=== PATIENT | male | born 1970 | race Caucasian/White ===

== ENCOUNTER → 2016-10-25 | Outpatient (CLI) | payer OTHER ==
[~2016-10-25] VITALS: Ht 177.8 cm; Wt 102.0 kg
[~2016-10-25] MED LIST: IBUP-1050 PO; MULT-506 PO
[2016-10-25 13:41] VITALS: BP 130/81; PULSE 87; Ht 177.8 cm; Wt 102.0 kg
== END | disposition home or self-care (01) ==
LOC: C.NEUR 13:24
PROVIDERS: ATTEND Internal Medicine Pulmonary Disease
DX: G47.33 Obstructive sleep apnea (adult) (pediatric) (principal); G47.19 Other hypersomnia

== ENCOUNTER → 2017-04-04 | Day surgery (SDC) | payer OTHER ==
[2017-03-16 08:07] VITALS: Ht 179.1 cm; Wt 96.4 kg
[~2017-04-04] VITALS: Ht 179.1 cm; Wt 96.4 kg
[~2017-04-04] MED LIST changes: +ATROPINE SULFATE 0.1 MG/ML 5ML SYR IV PRN; +CEFAZOLIN 2000 MG/60 ML D5W IV SCH; +DEXAMETHASONE SOD INJ 4 MG/ML VIAL ONE; +EpHEDrine SULFATE INJ 50 MG/ML AMP IV PRN; +EpINEphrine HCL INJ 1 MG/ML 5ML SYRINGE ONE; +FENTANYL CITRATE INJ 50 MCG/1 ML 2 ML VIAL ONE; +GLYCOPYRROLATE INJ 0.2 MG/ML VIAL ONE; +HYDROmorphone INJ 1 MG/ML SYR ONE; +KETAMINE HCL INJ 50 MG/ML 10 ML VIAL ONE; +KETOROLAC TROMETHAMINE 30 MG/ML VIAL ONE; +LACTATED RINGER'S 1000ML 1,000 ML IV SCH; +LEVOFLOXACIN 500 MG TAB PO SCH; +LIDOCAINE HCL 2% 2 ML VIAL (20MG/ML) ONE; +MIDAZOLAM HCL 1 MG/ML 2ML VIAL ONE; +NEOSTIGMINE METHYLSULFATE 5 MG/5 ML SYR ONE; +ONDANSETRON INJ 2 MG/ML 2 ML VIAL IV PRN; +ONDANSETRON INJ 2 MG/ML 2 ML VIAL ONE; +OXYCODONE/ACETAMINOPHEN 5-325 TAB PO PRN; +PROPOFOL IV EMULSION 10 MG/ML 20 ML VIAL IV ONE; +ROCURONIUM BROMIDE 10 MG/ML 5 ML VIAL ONE; +SCOPOLAMINE 1.5 MG TDSY TD ONE; +SODIUM CHLORIDE 0.9% 1000ML 1,000 ML IV SCH
--- NOTE | 2017-04-04 13:23 | History & Physical Bridge Note ---
H&P Re-Evaluation Bridge Note: I have examined the patient, reviewed the History & Physical and in the interval since the performance of the History & Physical I have noted the following changes of clinical significance: No changes noted
--- NOTE | 2017-04-04 13:25 | Discharge Instructions ---
Discharge Instructions Date of Service Apr 04, 2017. Visit Reason for Visit: Right Hip Chronic Enoroacetabular Impingement Synd Discharge Discharge Diagnosis / Problem: same Discharge Goals Goal(s): Decrease discomfort, Improve function Medications Stopped Medications Name(s): na Restart Stopped Medication(s): use scripts as directed Activity Recommendations Activity Limitations: as noted below Lifting Limitations: until after follow-up appointment Exercise/Sports Limitations: until after follow-up appointment May Resume Sexual Activity: after follow-up appointment Shower/Bathe: keep incision dry Driving or Machine Use: Weightbearing Status: Right non-weightbearing Anesthesia . Post Anesthesia Instructions: If you have had General Anesthesia or IV Sedation: * Do not drive today. * Resume driving when surgeon permits. * Do not make important decisions or sign legal documents today. * Call surgeon for: 1. Temperature elevations greater than 101 degrees F. 2. Uncontrollable pain. 3. Excessive bleeding. 4. Persistent nausea and vomiting. 5. Medication intolerance (nausea, vomiting or rash). * For nausea and vomiting use only clear liquids such as: tea, soda, bouillon until nausea subsides, then gradually increase diet as tolerated. * If you have any concerns or questions, call your surgeon's office. If physician is unavailable and it is an emergency, call 911 or go to the nearest emergency room. . Instructions / Follow-Up Instructions / Follow-Up DIET: * Resume previous diet. MEDICATIONS: * Please take your prescriptions as instructed at your pre-op appointment and/ or see medication discharge instructions listed above. * If concerns develop, call your physician's office at . SPECIAL CARE INSTRUCTIONS: * Ice/Elevate as instructed. * Keep dressing clean, dry, intact. * Your surgical extremity may be discolored due to prepping agents used on the skin. A bluish-green tint is a normal variant and should not cause alarm. Call your doctor at [phone] if: * Temperature above 101 degrees * Pain not relieved by pain medicine ordered * There is increased drainage or redness from any incision * You have any unanswered questions, problems or concerns. FOLLOW UP VISIT: * If not already scheduled, please call the office at to schedule a follow-up appointment. Diet Recommendations Recommended Home Diet: resume previous diet Procedures Procedures Performed: see op note Pending Studies Studies pending at discharge: no Medical Emergencies . Who to Call and When: Medical Emergencies: If at any time you feel your situation is an emergency, please call 911 immediately. . Non-Emergent Contact Non-Emergency issues call your: Specialist Call Non-Emergent contact if: temperature is above 101.5 . . "Provider Documentation" section prepared by Xavier Dale. .
--- NOTE | 2017-04-04 15:24 | [facility] Post Operative Brief Note ---
Immediate Operative Summary Operative Date Apr 04, 2017. Pre-Operative Diagnosis right hip labral hip tear with Cam lesion Post-Operative Diagnosis SAME Procedure(s) Performed debridement calcified labrum /cam resection Surgeon Dr Dale Edge Banding Off Bearer Surgeon(s) Marge Cerda PA-C Estimated Blood Loss trace Findings see op note Fluids (cc crystalloids) 1400cc Specimens none Drains none Anesthesia general Complication(s) None Disposition Recovery Room / PACU
[2017-04-04] MEDS: FENTANYL CITRATE INJ 50 MCG/1 ML 2 ML VIAL IV PRN ×3 (15:57→16:19)
--- NOTE | 2017-04-04 15:57 | OPERATIVE REPORT ---
DATE OF OPERATION: 04/04/2017 PREOPERATIVE DIAGNOSIS: Calcified labrum with Cam lesion and impingement of the right hip. POSTOPERATIVE DIAGNOSIS: Same. OPERATION PERFORMED: Arthroscopic debridement right hip, chondrocalcinosis of the labrum, debridement of calcified labrum, debridement of intra-articular cartilage flaps off the acetabulum and resection of Cam lesion. SURGEON: Dr. Dale. DELIVERY PROFESSIONAL: Zhao Cerda PA-C. No resident or fellow available. PERIOPERATIVE SITUATION: Medically cleared male with intractable hip pain, has difficulty even sitting. At this point in time is frustrated, cannot have any kind of quality of life, has failed all conservative management. Options were discussed with him concerning hip replacement and the hip arthroscopy. He wanted to proceed with the lesser procedure in the sense of the hip arthroscopy and at his age of 46 that is more appropriate. No guarantees were given. He could have continued pain, weakness, femoral neck fracture, etc. All these were discussed in detail preop. OPERATION AND FINDINGS: PROCEDURE: The patient appropriately identified, site verified, consent verified, 2 grams of Ancef confirmed as being given. The patient was placed on a traction table and the leg was then distracted. It was then put back at rest. He was then prepped and draped in usual routine fashion. Once everything was ready he was then placed back in traction with total traction time of about 50 minutes. Anterior trochanteric and anterior portal made. Good positioning was obtained, good free flow established. Capsulotomy was made. It was quite thick and fibrotic. Immediately encountered was a large flap tear of the labrum inside the joint. This was debrided. Once this was followed laterally, the area of the calcification on the x-ray was found and it was noted to be calcific labral type capsular tissue. This was all crystalloid. It was evacuated and once this was evacuated the entire lesion disappeared on the fluoroscopic view. All the particle debris was removed. This area was then all cleaned up. There was some articular disease of the acetabulum which was debrided in this area as well. Once this was done, traction was released. The hip flexed. The capsule was T'd but not resected. The area of the Cam lesion that was most prominent was resected. There was no aggressive resection done here enough to clear as he went into flexion. This was verified by fluoroscopic image. The hip was then copiously irrigated. All instruments and fluid were removed. The portals were then closed with 3-0 nylon, dressed appropriately with Xeroform, 4 x 4 gauze, ABD pads and Ioban dressing. The patient was then transferred to recovery room in satisfactory condition having tolerated the procedure well. Estimated blood loss was trace. Crystalloid 1400 mL. DVT prophylaxis per protocol. I attest to the content of the Intraoperative Record and any orders documented therein. Any exception s are noted below.
[2017-04-04 17:18] VITALS: BP 139/79; PULSE 87; O2SAT 97
--- NOTE | 2017-04-04 17:21 | Anesthesia Progress Nt - [facility] ---
Anesthesia Post Op Note Date & Time Apr 04, 2017 at 17:21 Vital Signs Pain Intensity: 5 Vital Signs Past 12 Hours Date Time Temp Pulse Resp B/P (MAP) Pulse Ox O2 Delivery O2 Flow Rate FiO2 04/04/17 17:18 87 16 139/79 (99) 97 Room Air 04/04/17 16:33 36.6 83 16 137/81 (99) 97 Room Air 04/04/17 16:30 80 14 95 04/04/17 16:30 36.6 83 14 04/04/17 16:26 140/98 (112) 04/04/17 16:25 78 14 99 04/04/17 16:25 79 14 04/04/17 16:23 Room Air 04/04/17 16:21 145/92 (106) 04/04/17 16:20 69 15 04/04/17 16:20 68 15 100 04/04/17 16:16 149/92 (102) 04/04/17 16:15 80 6 04/04/17 16:15 80 6 100 04/04/17 16:11 145/98 (112) 04/04/17 16:10 67 1 100 04/04/17 16:10 68 1 04/04/17 16:06 145/86 (100) 04/04/17 16:05 69 9 100 04/04/17 16:05 68 9 04/04/17 16:01 142/94 (101) 04/04/17 16:00 67 8 04/04/17 16:00 67 8 100 04/04/17 15:58 134/89 (99) 04/04/17 15:55 77 16 98 04/04/17 15:55 77 16 04/04/17 15:51 142/100 (107) 04/04/17 15:50 68 14 100 04/04/17 15:50 68 14 04/04/17 15:46 146/91 (102) 04/04/17 15:45 66 0 04/04/17 15:45 66 0 100 04/04/17 15:41 144/90 (96) 04/04/17 15:40 69 5 04/04/17 15:40 69 5 100 04/04/17 15:37 142/90 (107) 04/04/17 15:35 36.6 65 16 142/90 100 Diffusion Mask 6 04/04/17 11:21 37 72 16 121/80 (94) 97 Room Air Notes Mental Status: alert / awake / arousable, participated in evaluation Pt Amnestic to Procedure: Yes Nausea / Vomiting: adequately controlled Pain: adequately controlled Airway Patency, RR, SpO2: stable & adequate BP & HR: stable & adequate Hydration State: stable & adequate Anesthetic Complications: no major complications apparent
--- NOTE | 2017-04-04 18:10 | OPERATIVE REPORT ---
DATE OF OPERATION: 04/04/2017 PREOPERATIVE DIAGNOSIS: Right hip labral tear with Cam lesion. POSTOPERATIVE DIAGNOSIS: Right hip same. PROCEDURE: Right hip arthroscopy with debridement of calcified labrum and CAM lesion resection. SURGEON: Dr. Dale. RECORD MAKER: Zhao Cerda PA-C. HISTORY OF PRESENT ILLNESS: This 46-year-old white male presented to the office with complaints of right hip pain that have been ongoing for greater than a year. Symptoms started after playing softball. X-ray and MRI were obtained. He elected to proceed with surgical intervention after being educated about potential risks and outcomes. OPERATION: The patient was taken to the operating room where he was given general anesthetic. He was prepped and draped in the usual sterile fashion. Please see Dr. Dale's operative report for specifics of the procedure. I was present for the entire case from initial patient positioning through final wound closure. Assistance was provided in patient positioning, arthroscopy, and final wound closure. The patient was taken to the recovery room in satisfactory condition. I attest to the content of the Intraoperative Record and any orders documented therein. Any exception s are noted below.
== END | disposition home or self-care (01) ==
LOC: X.SURG 11:09
PROVIDERS: ATTEND Physical Medicine & Rehabilitation Sports Medicine
DX: S73.101A Unspecified sprain of right hip, initial encounter (principal); M11.251 Other chondrocalcinosis, right hip; Z87.442 Personal history of urinary calculi; Z82.49 Family history of ischemic heart disease and other diseases of the circulatory system; Z80.1 Family history of malignant neoplasm of trachea, bronchus and lung; G47.33 Obstructive sleep apnea (adult) (pediatric); E78.5 Hyperlipidemia, unspecified; X58.XXXA Exposure to other specified factors, initial encounter; Y93.64 Activity, baseball

== ENCOUNTER → 2017-05-22 | Outpatient (CLI) | payer OTHER ==
[~2017-05-22] MED LIST changes: -ATROPINE SULFATE 0.1 MG/ML 5ML SYR IV PRN; -CEFAZOLIN 2000 MG/60 ML D5W IV SCH; -DEXAMETHASONE SOD INJ 4 MG/ML VIAL ONE; -EpHEDrine SULFATE INJ 50 MG/ML AMP IV PRN; -EpINEphrine HCL INJ 1 MG/ML 5ML SYRINGE ONE; -FENTANYL CITRATE INJ 50 MCG/1 ML 2 ML VIAL ONE; -GLYCOPYRROLATE INJ 0.2 MG/ML VIAL ONE; -HYDROmorphone INJ 1 MG/ML SYR ONE; -IBUP-1050 PO; -KETAMINE HCL INJ 50 MG/ML 10 ML VIAL ONE; -KETOROLAC TROMETHAMINE 30 MG/ML VIAL ONE; -LACTATED RINGER'S 1000ML 1,000 ML IV SCH; -LEVOFLOXACIN 500 MG TAB PO SCH; -LIDOCAINE HCL 2% 2 ML VIAL (20MG/ML) ONE; -MIDAZOLAM HCL 1 MG/ML 2ML VIAL ONE; -NEOSTIGMINE METHYLSULFATE 5 MG/5 ML SYR ONE; -ONDANSETRON INJ 2 MG/ML 2 ML VIAL IV PRN; -ONDANSETRON INJ 2 MG/ML 2 ML VIAL ONE; -OXYCODONE/ACETAMINOPHEN 5-325 TAB PO PRN; -PROPOFOL IV EMULSION 10 MG/ML 20 ML VIAL IV ONE; -ROCURONIUM BROMIDE 10 MG/ML 5 ML VIAL ONE; -SCOPOLAMINE 1.5 MG TDSY TD ONE; -SODIUM CHLORIDE 0.9% 1000ML 1,000 ML IV SCH
== END | disposition home or self-care (01) ==
LOC: C.RDSM 13:52
PROVIDERS: ATTEND Physical Medicine & Rehabilitation Sports Medicine
DX: M25.851 Other specified joint disorders, right hip (principal)

== ENCOUNTER → 2017-07-07 | Outpatient (CLI) | payer OTHER ==
--- NOTE | 2017-07-07 13:38 | DIAGNOSTIC IMAGING REPORT ---
FUSION CT SINUSES W/O CLINICAL HISTORY: R09.81 Nasal congestion history of septoplasty and turbinate resection. COMPARISON STUDY: No previous studies for comparison. FINDINGS: Imaging was performed in the transverse plane. Coronal and sagittal reformatted images were reviewed. No orbital lesions are visualized. There is no hydrocephalus. There is an incomplete posterior C2 arch. There is bilateral maxillary sinus mucosal thickening left greater than right. There is narrowing of the infundibular portion of the left ostiomeatal unit. There is mild mucosal thickening within the sphenoid ethmoid and frontal sinuses. The ethmoid the olfactory grooves have a depth of 16 mm. There are bilateral Stephan cells. The frontoethmoidal recesses are patent. IMPRESSION: 1. No evidence of acute sinusitis 2. Pansinus mucosal thickening most pronounced in the left maxilla sinus 3. 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 07/07/2017 1:37 PM Dictated Date/Time: 07/07/2017 1:32 PM
== END | disposition home or self-care (01) ==
LOC: C.CTS 13:09
PROVIDERS: ATTEND Physician Assistant
DX: R09.81 Nasal congestion (principal)

== ENCOUNTER → 2017-08-21 | Outpatient (CLI) | payer OTHER | END | disposition home or self-care (01) | LOC: C.RDSM 08:15 | PROVIDERS: ATTEND Physical Medicine & Rehabilitation Sports Medicine | DX: M25.851 Other specified joint disorders, right hip (principal) ==